=== PATIENT | female | born 1970 | race Caucasian/White ===

== ENCOUNTER 2017-10-28 12:34 | Emergency (ER) | payer BC ==
[2017-10-28 13:20] LABS: #Eosinphils 0.1 thou/uL (0.0-0.7); #Lymphocytes 1.3 thou/uL (1.20-3.40); #Monocytes 0.3 thou/uL (0.11-0.59); #Neutrophils 3.7 thou/uL (1.40-6.50); %Basophils 0.7 % (0.0-1.0); %Eosinophils 2.3 % (0.0-10.0); %Lymphocytes 23.9 % (21.0-51.0); %Monocytes 5.3 % (0.0-10.0); %Neutrophils 67.8 % (42.0-75.0); Hemoglobin 12.3 g/dL (12.0-16.0); Mean Corpuscular HGB CONC 35.3 g/dL (32.0-36.0); Mean Corpuscular Hemoglobin 29.7 pg (27.0-31.0); Mean Platelet Volume 8.5 fL (7.4-10.4); Platelet Count 157 thou/uL (130-400); RBC Distribution Width 12.6 % (11.5-14.5); Red Blood Cell (RBC) Count 4.15 mill/uL (4.20-5.40); White Blood Cell (WBC) Count 5.4 thou/uL (4.8-10.8)
[2017-10-28 13:36] LABS: ALT (SGPT) 16 U/L (8-55); AST (SGOT) 12 U/L (5-34); Albumin 4.1 g/dL (3.5-5.0); Alkaline Phosphatase 93 U/L (40-150); Anion Gap 13 mmol/L (10-20); BUN (Urea Nitrogen) 21 mg/dL (7.0-18.7); Bilirubin, Total 0.6 mg/dL (0.2-1.2); Calc. Creatinine Clearance 0 mL/min (70-130); Calcium 9.1 mg/dL (7.8-10.44); Carbon Dioxide 23 mmol/L (22-29); Chloride 108 mmol/L (98-107); Estimated GFR-MDRD 85; Globulin 2.2 g/dL (2.4-3.5); Glucose 99 mg/dL (70-105); Protein, Total 6.3 g/dL (6.0-8.3); Sodium 140 mmol/L (136-145)
[2017-10-28 13:40] LABS: CKMB 0.5 ng/mL (0-6.6); Troponin I Less than 0.010 ng/mL (< 0.028)
[2017-10-28] MEDS ORDERED: Ondansetron HCl/PF 4 MG/2 ML Vial ONE (14:29)
[2017-10-28] MEDS ORDERED: Meclizine HCl 25 MG TAB ONE (14:29)
--- NOTE | 2017-10-28 14:59 | RAD ---
FOUR VIEWS SACRUM AND COCCYX: Indication: Dizziness, fall, tailbone pain. FINDINGS: No displaced sacral or coccyx fracture is evident. SI joints are within normal limits. There are surg ical clips in the lower abdomen and left hemipelvis. IMPRESSION: No displaced fracture demonstrated. POS: [facility]
--- NOTE | 2017-10-28 15:00 | CT ---
HEAD CT WITHOUT CONTRAST: 10/28/2017 HISTORY: Dizziness and head injury. COMPARISON: 10/28/2013 TECHNIQUE: Serial axial CT imaging at 4.8 mm intervals from the vertex through the skull base without contrast. FINDINGS: The imaged paranasal sinuses/mastoid air cells are well aerated. There is no displaced calvarial fra cture seen. No intracranial hemorrhage, midline shift, mass effect, or ventricular enlargement. 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 IMPRESSION: No acute findings. POS: [facility]
--- NOTE | 2017-10-28 15:03 | RAD ---
FOUR VIEWS RIGHT ELBOW: INDICATIONS: Right elbow injury. FINDINGS: No acute fracture or subluxation is evident. No joint capsular distention is present. No radiopaque foreign body is evident. IMPRESSION: No acute osseous abnormality. POS: [facility]
== END 2017-10-28 15:08 | disposition home or self-care (01) ==
LOC: SCSER 12:34
DX: S00.03XA Contusion of scalp, initial encounter (principal); S50.01XA Contusion of right elbow, initial encounter; S30.0XXA Contusion of lower back and pelvis, initial encounter; R55 Syncope and collapse; F41.9 Anxiety disorder, unspecified; F17.210 Nicotine dependence, cigarettes, uncomplicated; Z85.3 Personal history of malignant neoplasm of breast; Z79.899 Other long term (current) drug therapy; W19.XXXA Unspecified fall, initial encounter
CPT/HCPCS: 70450; 72220; 80053; 82553; 84484; 85025; 93005; 94760; 96374; J2405

== ENCOUNTER 2020-08-10 12:32 | Outpatient (CLI) | payer BC | END 2020-08-10 12:33 | disposition home or self-care (01) | LOC: BICRAD 12:32 | PROVIDERS: ATTEND Family Medicine | DX: M51.27 Other intervertebral disc displacement, lumbosacral region (principal); C50.211 Malignant neoplasm of upper-inner quadrant of right female breast; M47.816 Spondylosis without myelopathy or radiculopathy, lumbar region; M47.817 Spondylosis without myelopathy or radiculopathy, lumbosacral region | CPT/HCPCS: 72100; 72170 ==

== ENCOUNTER 2020-08-14 08:25 | Outpatient (CLI) | payer BC | END 2020-08-14 08:26 | disposition home or self-care (01) | LOC: BICMAMMO 08:25 | PROVIDERS: ATTEND Family Medicine | DX: M85.89 Other specified disorders of bone density and structure, multiple sites (principal); Z90.710 Acquired absence of both cervix and uterus | CPT/HCPCS: 77080 ==